=== PATIENT | female | born 1975 | race Caucasian/White ===

== ENCOUNTER 2018-05-22 12:20 | Emergency (ER) | payer OTHER ==
[2018-05-22 12:53] VITALS: BP 106/62
--- NOTE | 2018-05-22 14:33 | UC ---
Back Pain HPI - HPI Summary HPI Summary: Last night patient slipped on the ice and did a split. Right leg went forward, left leg went back. Several hours after the incident patient developed excruciating pain in the left low back radiating down her thigh. No numbness or tingling in the feet. No saddle anesthesia or loss of bowel or bladder control. Pain is much worse with movement. - History of Current Complaint Chief Complaint: UCLowerExtremity Stated Complaint: HIP AND BACK INJURY Time Seen by Provider: 05/22/18 13:01 Hx Obtained From: Patient Hx Last Menstrual Period: 05/12/18 Onset/Duration: Sudden Onset, Lasting Hours, Still Present Timing: Constant Severity Initially: Moderate Severity Currently: Moderate Pain Intensity: 4 Pain Scale Used: 0-10 Numeric Back Pain: Is Discrete @ - left low back Character: Sharp Aggravating Factor(s): Movement Alleviating Factor(s): Position Associated Signs And Symptoms: Negative: Swelling, Redness, Bruising, Numbness, Tingling, Bladder Incontinence, Bowel Incontinence - Allergies/Home Medications Allergies/Adverse Reactions: Allergies Allergy/AdvReac Type Severity Reaction Status Date / Time No Known Allergies Allergy Verified 05/22/18 12:53 Home Medications: Home Medications Ibuprofen TAB* [Motrin TAB* 600 MG] 200 mg PO Q6H PRN 05/22/18 [History Confirmed 05/22/18] PMH/Surg Hx/FS Hx/Imm Hx Previously Healthy: Yes - Surgical History Surgical History: None - Family History Known Family History: Positive: Non-Contributory - Social History Alcohol Use: Occasionally Substance Use Type: None Smoking Status (MU): Never Smoked Tobacco Have You Smoked in the Last Year: No - Immunization History Most Recent Influenza Vaccination: unsure Most Recent Tetanus Shot: 09/18/15 Most Recent Pneumonia Vaccination: unsure Review of Systems All Other Systems Reviewed And Are Negative: Yes Constitutional: Positive: Negative Skin: Positive: Negative Respiratory: Positive: Negative Cardiovascular: Positive: Negative Gastrointestinal: Positive: Negative Musculoskeletal: Positive: Myalgia Physical Exam Triage Information Reviewed: Yes Appearance: Well-Appearing, Well-Nourished, Pain Distress - moderate pain with mvmt Vital Signs: Initial Vital Signs Temp 98.6 F 05/22/18 12:47 Pulse 71 05/22/18 12:47 Resp 18 01/08/19 12:47 BP 106/62 05/22/18 12:47 Pulse Ox 100 05/22/18 12:47 Vital Signs Reviewed: Yes Eyes: Positive: Conjunctiva Clear ENT: Positive: Pharynx normal Neck: Positive: Supple Respiratory: Positive: No respiratory distress, No accessory muscle use Cardiovascular: Positive: Pulses Normal Abdomen Description: Positive: Soft Musculoskeletal: Positive: No Edema, ROM Limited @ - back, Other: - TTP PARASPINOUS MUSCLES LEFT LOW BACK. Neurological: Positive: Alert, Other: - EQUIVOCAL LEFT STRAIGHT LEG RAISE Psychological: Positive: Age Appropriate Behavior Skin: Negative: Rashes Back Pain Course/Dx - Differential Dx/Diagnosis Provider Diagnosis: Low back strain Discharge - Sign-Out/Discharge Documenting (check all that apply): Patient Departure All imaging exams completed and their final reports reviewed: No Studies - Discharge Plan Condition: Stable Disposition: HOME Prescriptions: Cyclobenzaprine TAB* [Flexeril TAB*] 10 mg PO BID PRN #30 tab PRN Reason: Pain Patient Education Materials: Muscle Strain (ED) Forms: *Work Release Referrals: Anna Lilly MD [Primary Care Provider] - If Needed Additional Instructions: YOUR SYMPTOMS SHOULD IMPROVE SIGNIFICANTLY OVER THE NEXT 1-2 WEEKS. IF YOU DO NOT IMPROVE EXPECTED FOLLOW-UP WITH YOUR PCP. YOU MAY BENEFIT FROM IMAGING AT THAT TIME. PHYSICAL THERAPY REFERRAL ALSO PROVIDED FOR YOU TO USE IF DESIRED. REST. OTC IBUPROFEN OR ALEVE NEEDED FOR DISCOMFORT. TAKE MUSCLE RELAXER BEFORE BED. BE SURE TO GO THROUGH SLOW RANGE OF MOTION AND STRETCHING EXERCISES DAILY YOU ARE ABLE TO PREVENT STIFFENING UP AND MAKING THE DISCOMFORT WORSE. - Billing Disposition and Condition Condition: STABLE Disposition: Home
== END 2018-05-22 13:43 | disposition home or self-care (01) ==
LOC: UCEAST 12:20
DX: S39.012A Strain of muscle, fascia and tendon of lower back, initial encounter (principal); W00.0XXA Fall on same level due to ice and snow, initial encounter; Y92.9 Unspecified place or not applicable
CPT/HCPCS: 99212; G0463

== ENCOUNTER 2018-07-02 13:27 | Emergency (ER) | payer OTHER ==
[2018-07-02 14:57] VITALS: BP 117/70
--- NOTE | 2018-07-02 15:20 | ED ---
Back Pain - HPI Summary HPI Summary: 43 year old female presents with back pain for the past couple weeks. She states she had an injury at work which resulted in back pain a couple weeks ago. It seemed to get better and she followed up with PT. on mon last week it got worst. pain is greatest on left side of back. does not radiate down leg. no numbness or tingling. no weakness. is able to ambulate. pain is better standing. states can not touch toes due to pain. no fever. no urinary symptoms. no loss of bowel or bladder or saddle anaesthesia. has been using ibuprofen and flexeril for pain. - History of Current Complaint Chief Complaint: UCBackPain Stated Complaint: BACK PAIN Time Seen by Provider: 07/02/18 15:00 Hx Last Menstrual Period: 05/12/18 Pain Intensity: 8 - Allergies/Home Medications Allergies/Adverse Reactions: Allergies Allergy/AdvReac Type Severity Reaction Status Date / Time No Known Allergies Allergy Verified 07/02/18 14:57 PMH/Surg Hx/FS Hx/Imm Hx Endocrine/Hematology History: Denies: Hx Diabetes, Hx Thyroid Disease Cardiovascular History: Denies: Hx Hypercholesterolemia, Hx Hypertension, Hx Peripheral Vascular Disease Respiratory History: Denies: Hx Asthma, Hx Chronic Obstructive Pulmonary Disease (COPD) GI History: Denies: Hx Ulcer Musculoskeletal History: Denies: Hx Arthritis, Hx Osteoporosis Sensory History: Denies: Hx Cataracts, Hx Contacts or Glasses, Hx Glaucoma Opthamlomology History: Denies: Hx Cataracts, Hx Contacts or Glasses, Hx Glaucoma Neurological History: Denies: Hx Headaches, Hx Seizures, Hx Transient Ischemic Attacks (TIA) Psychiatric History: Denies: Hx Anxiety, Hx Depression Infectious Disease History: No Infectious Disease History: Denies: Hx Hepatitis, Hx Human Immunodeficiency Virus (HIV), Traveled Outside the [place] in Last 30 Days - Family History Known Family History: Positive: Non-Contributory - Social History Alcohol Use: Occasionally Hx Substance Use: No Substance Use Type: Reports: None Hx Tobacco Use: No Smoking Status (MU): Never Smoked Tobacco Have You Smoked in the Last Year: No Review of Systems Negative: Fever Negative: Chest Pain Negative: Shortness Of Breath Positive: Myalgia - back pain All Other Systems Reviewed And Are Negative: Yes Physical Exam Triage Information Reviewed: Yes Vital Signs On Initial Exam: Initial Vitals Temp Pulse Resp BP Pulse Ox 98.1 F 78 18 117/70 100 07/02/18 14:52 07/02/18 14:52 07/02/18 14:52 07/02/18 14:52 07/02/18 14:52 Vital Signs Reviewed: Yes Appearance: Positive: Well-Appearing Skin: Positive: Warm, Dry Head/Face: Positive: Normal Head/Face Inspection Eyes: Positive: Normal, Conjunctiva Clear ENT: Positive: Pharynx normal Respiratory/Lung Sounds: Positive: Clear to Auscultation, Breath Sounds Present Cardiovascular: Positive: Normal, RRR Musculoskeletal: Positive: Strength/ROM Intact - back with pain, Other - tenderness left side of back, greatest over SI joint, good pulses, sensation grossly intact Neurological: Positive: Normal, Reflexes Intact - patella, Normal Gait Psychiatric: Positive: Normal Diagnostics - Vital Signs Vital Signs Temp Pulse Resp BP Pulse Ox 07/02/18 14:52 98.1 F 78 18 117/70 100 - Laboratory Lab Statement: Any lab studies that have been ordered have been reviewed, and results considered in the medical decision making process. - CT back CT Interpretation Completed By: Radiologist Summary of CT Findings: IMPRESSION: 1. NO EVIDENCE FOR FRACTURE. 2. MILD TO MODERATE LUMBAR SPONDYLOSIS DESCRIBED. IF THE PATIENT'S SYMPTOMS PERSIST. RECOMMEND MR IMAGING FOR FURTHER EVALUATION. 3. SCLEROTIC LESION WITHIN THE SACRUM LIKELY INCIDENTAL ALTHOUGH IF THE PATIENT HAS A. HISTORY OF MALIGNANCY RECOMMEND A BONE SCAN FOR FURTHER EVALUATIO Back Pain Course/Dx - Course Course Of Treatment: 43 year old female presents with back pain for the past couple weeks. She states she had an injury at work which resulted in back pain a couple weeks ago. It seemed to get better and she followed up with PT. on mon last week it got worst. pain is greatest on left side of back. does not radiate down leg. no numbness or tingling. no weakness. is able to ambulate. pain is better standing. states can not touch toes due to pain. no fever. no urinary symptoms. no loss of bowel or bladder or saddle anaesthesia. has been using ibuprofen and flexeril for pain. on exam tenderness left SI joint. neurovascular intact. no imaging has been ordered in past so got CT and shows spondylosis. discussed results with patient. will have follow up with occupational therapy. will give steriod for pain. patient has muscle relaxer. gave PT script. patient understand and agrees with plan. - Diagnoses Differential Diagnosis/HQI/PQRI: Positive: Fracture, Herniated Disc, Strain, Sprain Provider Diagnoses: Back pain Discharge - Sign-Out/Discharge Documenting (check all that apply): Patient Departure All imaging exams completed and their final reports reviewed: Yes - Discharge Plan Condition: Good Disposition: HOME Prescriptions: methylPREDNISolone [Medrol Dosepak 4 MG*] 4 mg PO .SEE BOBBY INSTRUCTION #1 packet Patient Education Materials: Back Pain (ED) Forms: *Work Release Referrals: Anna Lilly MD [Primary Care Provider] - Nilo Albarado MD [Medical Doctor] - Additional Instructions: Follow directions on package for Medrol pack Use ibuprofen or Tylenol for pain every 6 hours ice/heat area, move as much as possible Follow up with occupational medicine Return to ED if develop any new or worsening symptoms - Billing Disposition and Condition Condition: GOOD Disposition: Home - Attestation Statements Provider Attestation: I was available for consult. This patient was seen by the CAROL. The patient was not presented to, seen by, or examined by me. -Pet[place]
== END 2018-07-02 16:12 | disposition home or self-care (01) ==
LOC: UCEAST 13:27
DX: M54.9 Dorsalgia, unspecified (principal); M47.816 Spondylosis without myelopathy or radiculopathy, lumbar region; M89.9 Disorder of bone, unspecified
CPT/HCPCS: 72131; 99212; G0463